=== PATIENT | female | born 1995 | race Caucasian/White ===

== ENCOUNTER 2016-10-02 00:53 | Observation (INO) | payer MEDICAID ==
[~2016-10-02] VITALS: Ht 177.8 cm; Wt 81.9 kg
[2016-10-02] MEDS ORDERED: PRENATAL 1+1)(P1 TAB PO (03:13)
[2016-10-02 03:50] LABS: BILIRUBIN URINE NEGATIVE (NEGATIVE); BLOOD URINE NEGATIVE /UL (NEGATIVE); COLOR URINE YELLOW (YELLOW); GLUCOSE URINE NEGATIVE (NEGATIVE); KETONE URINE NEGATIVE (NEGATIVE); LEUKOCYTES URINE 25 /UL (NEGATIVE); NITRITE URINE NEGATIVE (NEGATIVE); PROTEIN URINE NEGATIVE (NEGATIVE); TURBIDITY URINE CLEAR (CLEAR); UROBILINOGEN URINE NORMAL (NORMAL)
[2016-10-02 04:12] LABS: BACTERIA URINE MODERATE (NEGATIVE); RBC URINE NEGATIVE #/HPF (NEGATIVE)
[2016-10-02 04:21] LABS: AMPHETAMINE NEGATIVE (NEGATIVE); BARBITURATE NEGATIVE (NEGATIVE); COCAINE NEGATIVE (NEGATIVE); OPIATES NEGATIVE (NEGATIVE)
== END 2016-10-02 03:39 | disposition disaster alternative care site (69) ==
LOC: GOBS 00:53
PROVIDERS: Family Medicine; ADMIT Family Medicine
DX: O36.8120 Decreased fetal movements, second trimester, not applicable or unspecified (principal); Z3A.21 21 weeks gestation of pregnancy; Z87.898 Personal history of other specified conditions
CPT/HCPCS: G0463

== ENCOUNTER → 2016-10-10 | Outpatient (CLI) | payer MEDICAID ==
[~2016-10-10] MED LIST: LANSINOH7 GM; MOTRIN800 MG PO; PERCOCET 5-3251 EACH PO; PRENATAL 1+1)(P1 TAB PO
== END | disposition disaster alternative care site (69) ==
LOC: GRAD 13:46
DX: Z34.82 Encounter for supervision of other normal pregnancy, second trimester (principal); O44.42 Low lying placenta NOS or without hemorrhage, second trimester; Z3A.22 22 weeks gestation of pregnancy

== ENCOUNTER 2016-12-23 17:38 | Observation (INO) | payer MEDICAID ==
[~2016-12-23] VITALS: Ht 177.8 cm; Wt 82.0 kg
[~2016-12-23 17:38] MED LIST changes: -LANSINOH7 GM; -MOTRIN800 MG PO; -PERCOCET 5-3251 EACH PO
== END 2016-12-23 19:00 | disposition disaster alternative care site (69) ==
LOC: GMSU 17:38 → GOBS 17:42
PROVIDERS: ADMIT Family Medicine
DX: O36.8130 Decreased fetal movements, third trimester, not applicable or unspecified (principal); Z3A.33 33 weeks gestation of pregnancy
CPT/HCPCS: G0463

== ENCOUNTER 2017-01-20 21:13 | Outpatient (CLI) | payer MEDICAID ==
[~2017-01-20] VITALS: Ht 177.8 cm; Wt 87.0 kg
== END 2017-01-20 22:45 | disposition disaster alternative care site (69) ==
LOC: GOBM 21:13 → GOBS 21:13 → GOBM 22:45
DX: O99.89 Other specified diseases and conditions complicating pregnancy, childbirth and the puerperium (principal); R10.9 Unspecified abdominal pain; O99.333 Smoking (tobacco) complicating pregnancy, third trimester; Z3A.36 36 weeks gestation of pregnancy
CPT/HCPCS: G0463

== ENCOUNTER 2017-02-14 03:51 | Inpatient (IN) | payer MEDICAID ==
[~2017-02-14] VITALS: Ht 180.3 cm; Wt 87.9 kg
--- NOTE | ~2017-02-14 | OR ---
PATIENT'S NAME: SANTOS MERAZ [facility] AGE: 21 Y [address] ROOM: [place] [address] LOCATION: BS ADMIT DATE: 02/14/2017 OR/Procedure Report DISCHARGE DATE: FAMILY PHYSICIAN: Gin Fu MD ATTENDING PHYSICIAN: Gin Fu SURGEON: Gin Fu MD CHARGE ATTENDANT: DATE OF PROCEDURE: 02/14/2017 DELIVERY NOTE: TIME OF DELIVERY: On 02/14/2017 at 0637 hours. This 21-year-old G2, P1, female, under intrathecal anesthesia delivered a viable male , weighing 6 pounds 5 ounces with scores of 9 and 9 at 1 and 5 minutes. Mother came in a few hours prior to delivery in active labor. Artificial rupture of membranes occurred about an hour prior to becoming complete. She did receive an intrathecal for anesthesia. She progressed nicely to complete, and delivery was via spontaneous vaginal delivery to a sterile field. Baby was in the OA position. The anterior shoulder was left and delivered easily along with the rest of the body. The baby was bulb suctioned at delivery and stimulated, had a nice cry and pinked up nicely. The cord was then doubly clamped and then cut by a friend and then placed on the maternal abdomen. Cord blood was then sent for analysis. The intact placenta with three-vessel cord delivered spontaneously shortly after delivery of the baby. Mom's uterus was massaged and 20 units of Pitocin was given through her bag of IV fluids. The patient's cervix and vagina and perineum were explored, and she has no tear and no repair was necessary. Fluids were clear throughout. Estimated blood loss was 300 mL. Both baby and mom were in stable condition. The sponge counts and needle counts were correct. MD LYDIA NULLP/fany /[id number] d: 02/14/17 1256 t: 02/28/17 1220, OPERATIVE SUMMARY
[2017-02-14 04:41] LABS: BASOPHIL # 0.1 K/uL (0.0-0.2); BASOPHIL % 0.4 %; EOSINOPHIL # 0.1 K/uL (0.0-0.5); EOSINOPHIL % 0.8 %; HEMATOCRIT 38.5 % (33.0-46.0); HEMOGLOBIN 13.5 g/dL (11.0-15.0); IMMATURE GRANULOCYTE # 0.1 K/uL (0.0-0.3); IMMATURE GRANULOCYTE % 0.6 %; LYMPHOCYTE # 1.9 K/uL (0.8-4.0); LYMPHOCYTE % 13.4 %; MCH 30.7 pg (27.0-34.0); MCHC 35.1 gm/dL (32.0-36.5); MCV 87.5 fl (83.0-98.0); MONOCYTE # 0.8 K/uL (0.0-1.0); MONOCYTE % 5.7 %; MPV 11.5 fl (9.4-12.4); NEUTROPHIL # (ANC) 11.2 K/uL (1.8-7.8); NEUTROPHIL % 79.1 %; NRBC % 0 /100WBC (0-0.00); PLATELET COUNT 272 K/uL (150-450); RDW-CV 13.1 % (11.9-14.6); WBC 14.2 K/uL (4.0-11.0)
--- NOTE | 2017-02-14 15:01 | NUR ---
Met with patient and her mom at bedside today. Introduced myself and the role of the CM department. Instructed mom to contact Medicaid and notify them of baby Velasquez's . I provided her with a list of community resources. She has an appointment with [facility] in March. She has all the necessary baby items at home for Velasquez. Her 6 yr ol started school today. Her mom and friends are good support for her. FOB is not involved. I provided her with hand out on post depression and went over the signs and symptoms to watch for. No other needs at this time.
--- NOTE | 2017-02-14 17:39 | NUR ---
Last VS: T:98.3 P:84 R: 16 BP: 120/53 Pain rating: Last pain med: Motrin Medicated at: Effective: Yes Breasts:soft , Nipples:intact Fundus:ff,even Lochia:small-mod. Epis/Perineum: No laceration/epis. Voiding well:yes Significant event: Will need Rhogam. screen ordered for am. Vss. Had Motrin mid am.
--- NOTE | 2017-02-15 04:55 | NUR ---
vss, motrin given at 1900. home today. needs to turn in certificate.
[2017-02-15 04:59] LABS: BASOPHIL # 0.1 K/uL (0.0-0.2); BASOPHIL % 0.6 %; EOSINOPHIL # 0.2 K/uL (0.0-0.5); EOSINOPHIL % 1.5 %; HEMATOCRIT 34.8 % (33.0-46.0); IMMATURE GRANULOCYTE # 0.1 K/uL (0.0-0.3); IMMATURE GRANULOCYTE % 0.6 %; LYMPHOCYTE # 2.3 K/uL (0.8-4.0); LYMPHOCYTE % 18.4 %; MCH 30.4 pg (27.0-34.0); MCHC 34.5 gm/dL (32.0-36.5); MCV 88.1 fl (83.0-98.0); MONOCYTE # 0.8 K/uL (0.0-1.0); MONOCYTE % 6.1 %; NEUTROPHIL % 72.8 %; NRBC % 0 /100WBC (0-0.00); RBC 3.95 M/uL (3.50-5.00); RDW-CV 13.2 % (11.9-14.6); WBC 12.4 K/uL (4.0-11.0)
[2017-02-15 05:03] LABS: PLATELET COUNT 207 K/uL (150-450)
--- NOTE | 2017-02-16 05:14 | NUR ---
VSS, fundus firm, midline, scant flow, Perc last at 2200, Rhogham given already
[2017-02-16] MEDS ORDERED: PERCOCET 5-3251 EACH PO (09:12)
[2017-02-16] MEDS ORDERED: LANSINOH7 GM (09:12)
[2017-02-16] MEDS ORDERED: MOTRIN800 MG PO (09:12)
== END 2017-02-16 11:20 | disposition disaster alternative care site (69) | DRG 775 ==
LOC: GOBS 03:51 → GOBM 03:51 → GOBS 04:00 → GOBM 04:00 → GOBS 02-16 11:20
PROVIDERS: Family Medicine; ADMIT Family Medicine
PROC: 10E0XZZ Delivery of Products of Conception, External Approach (ICD-10-PCS; principal; 2017-02-14)
DX: O48.0 Post-term pregnancy (principal); F17.210 Nicotine dependence, cigarettes, uncomplicated; Z3A.40 40 weeks gestation of pregnancy; Z37.0 Single live birth; O99.334 Smoking (tobacco) complicating childbirth
CPT/HCPCS: J2001; J2540; J2590; J2791; J3010; J7120